=== PATIENT | female | born 1980 | race Caucasian/White ===

== ENCOUNTER 2016-03-23 10:35 | Emergency (ER) | payer OTHER ==
[~2016-03-23] VITALS: Ht 167.6 cm; Wt 69.5 kg
[~2016-03-23 10:35] MED LIST: Motrin PO; Percocet 5/325,Endoc PO
[2016-03-23 11:32] LABS: HEMATOCRIT 41.5 % (36.0-46.0); MCH 30.7 PG (29.0-34.0); MCHC 34.7 G/DL (30.0-36.0); MCV 88.5 FL (83-99); MEAN PLAT.VOLUME 9.5 uM^3 (9.5-12.4); PLATELET COUNT 164 K/uL (156-360); RBC DIS.WIDTH-CV 12.2 % (11.8-14.6); RBC DIS.WIDTH-SD 38.9 % (39-53); RED BLOOD COUNT 4.69 M/uL (3.80-5.20); WHITE BLOOD COUNT 7.8 K/uL (4.1-10.2)
[2016-03-23 11:45] LABS: CHLORIDE 99 mEq/L (99-109); SODIUM 134 mEq/L (136-147)
[2016-03-23 11:48] LABS: GLUCOSE 98 mg/dL (70-99)
[2016-03-23 11:49] LABS: ANION GAP 8 MEQ/L (2-14)
[2016-03-23 11:50] LABS: TOTAL BILIRUBIN 1.1 mg/dL (0.0-1.0)
[2016-03-23 11:51] LABS: ALKALINE PHOSPHATASE 31 IU/L (3-129); GFR ESTIMATE (CALCULATED) > 59 mL/min/
[2016-03-23 11:52] LABS: UREA NITROGEN (BUN) 16 mg/dL (9-23)
[2016-03-23 12:00] LABS: QUANTITATIVE HCG < 4.0 MIU/ML
[2016-03-23 13:59] VITALS: BP 106/69
== END 2016-03-23 14:01 | disposition home or self-care (01) ==
LOC: EME 10:35
PROVIDERS: Emergency Medicine
DX: R19.7 Diarrhea, unspecified (principal); R42 Dizziness and giddiness
CPT/HCPCS: 80053; 84702; 85027; 93005; 99281; 99285; J7030